=== PATIENT | female | born 1945 | race Caucasian/White ===

== ENCOUNTER 2017-08-26 16:15 | Inpatient (IN) | payer OTHER ==
[~2017-08-26] VITALS: Ht 162.6 cm; Wt 73.2 kg
[2017-08-26 16:18] VITALS: BP 168/70
[2017-08-26 16:36] LABS: BASO % 0.3 % (0.0-1.0); EOS # 0.1 10*3/uL (0.0-0.4); EOS % 0.9 % (1.0-4.0); HEMATOCRIT 42.1 % (37.0-47.0); HEMOGLOBIN 14.1 g/dl (12.0-16.0); LYMPH # 3.6 10*3/uL (1.3-4.4); LYMPH % 34.8 % (27.0-41.0); MEAN CELL VOLUME 93.1 fl (81.0-99.0); MEAN CORPUSCULAR HGB 31.2 pg (27.0-31.0); MEAN CORPUSCULAR HGB CONC 33.5 g/dl (33.0-37.0); MEAN PLATELET VOLUME 10.1 fl (9.6-12.3); MONO # 0.8 10*3/uL (0.1-1.0); MONO % 7.6 % (3.0-9.0); NEUT # 5.9 10*3/uL (2.3-7.9); PLATELET COUNT AUTOMATED 256 10*3/uL (130-400); RED BLOOD COUNT 4.52 10*6/uL (4.10-5.10); RED CELL DISTRI WIDTH 12.6 % (0-14.5); WHITE BLOOD COUNT 10.5 10*3/uL (4.8-10.8)
[2017-08-26 16:45] LABS: ACT PARTIAL THROMBO TIME 23.7 SECONDS (20.8-31.5); INTERNATIONAL NORM RATIO 0.9 (2.0-3.5)
[2017-08-26 16:54] LABS: ALKALINE PHOSPHATASE 86 U/L (45-117); BUN 18 mg/dl (7-24); CHLORIDE 107 mmol/L (98-107); CREATININE 1.18 mg/dL (0.55-1.02); SGOT/AST 12 IU/L (3-35); SGPT/ALT 27 U/L (12-78); SODIUM 139 mmol/L (136-145); TOTAL PROTEIN 7.9 gm/dL (6.4-8.2)
[2017-08-26 16:56] LABS: TROPONIN I < 0.015 ng/ml (<0.045)
--- NOTE | 2017-08-26 18:11 | NUR ---
REPORT CALL TO ELIAS ELLER, PT CYNTHIA ALBARADO, STATES THE GI COCKTAIL WAS EFFECTIVE, ALSO FOR HER RIGHT SIDED NECK PAIN. PT REMAINS NSR.
[2017-08-26 18:13] VITALS: BP 157/65
--- NOTE | 2017-08-26 18:30 | NUR ---
A 72, admitted to , under the services of ADILSON Rojas DO with a diagnosis of CHEST PAIN. Chief complaint is C/O MID STERNAL CHEST PAIN RADATING INTO RIGHT SIDE OF NECK ON AND OFF SINCE MONDAY. STATES THE PAIN HAS INCREASED TODAY. DENIES ANY SOB. SLIGHT NAUSEA. Patient arrived via stretcher from ER. Monitor applied. Initial assessment completed. Vital signs taken and recorded. ADILSON ROJAS DO notified of admission to the unit. Orders received. See assessment for past medical history, medications and allergies. Patient and/or family oriented to unit. [facility] visitation policy reviewed. Clothing/patient valuable form completed. ELIAS HERNANDEZ
[2017-08-26] MEDS ORDERED: PROTONIX40 MG PO (19:17)
[2017-08-26] MEDS ORDERED: LEVSIN0.125 M2 PO (19:18)
--- NOTE | 2017-08-26 19:20 | NUR ---
MEDS VERIFIED WITH BOTTLES. THE PATIENT HAD A BOTTLE OF LEVSIN THAT IS FROM 2014. PATIENT STATES THAT IT IS FOR STOMACH SPASMS. SHE STATES SHE ONLY HAS TO TAKE IT ONCE IN A WHILE WHICH IS WHY SHE STILL HAS SOME LEFT.
--- NOTE | 2017-08-26 19:30 | NUR ---
ASSUMED CARE OF PT AT THIS TIME, RESPS EASY AND NONLABORED WITH NO S/S OF DISTRESS, CALL LIGHT WITH IN REACH
[2017-08-26 20:00] VITALS: BP 151/80
[2017-08-27] VITALS: BP 147/65
[2017-08-27 06:02] LABS: ALBUMIN 3.3 gm/dl (3.1-4.5); ALKALINE PHOSPHATASE 69 U/L (45-117); BUN 13 mg/dl (7-24); CHLORIDE 109 mmol/L (98-107); CHOLESTEROL 199 mg/dL (<200); CREATININE 0.93 mg/dL (0.55-1.02); FREE T4 1.08 ng/dl (0.76-1.46); HDL CHOLESTEROL 41 mg/dl (40-60); LDL CHOLESTEROL 107 mg/dL (9-159); PHOSPHOROUS 2.9 mg/dL (2.5-4.9); POTASSIUM 4.1 mmol/L (3.5-5.1); SGOT/AST 11 IU/L (3-35); SGPT/ALT 20 U/L (12-78); SODIUM 142 mmol/L (136-145); TOTAL PROTEIN 6.3 gm/dL (6.4-8.2); TRIGLYCERIDES 254 mg/dl (<150); VLDL CHOLESTEROL 51 mg/dL (6-40)
[2017-08-27 06:03] LABS: BASO % 0.2 % (0.0-1.0); EOS # 0.1 10*3/uL (0.0-0.4); EOS % 1.1 % (1.0-4.0); HEMATOCRIT 37.6 % (37.0-47.0); HEMOGLOBIN 12.1 g/dl (12.0-16.0); MEAN CELL VOLUME 94.2 fl (81.0-99.0); MEAN CORPUSCULAR HGB 30.3 pg (27.0-31.0); MEAN CORPUSCULAR HGB CONC 32.2 g/dl (33.0-37.0); MEAN PLATELET VOLUME 10.3 fl (9.6-12.3); MONO # 0.7 10*3/uL (0.1-1.0); MONO % 7.9 % (3.0-9.0); NEUT # 4.5 10*3/uL (2.3-7.9); NEUT % 54.4 % (47.0-73.0); PLATELET COUNT AUTOMATED 234 10*3/uL (130-400); RED BLOOD COUNT 3.99 10*6/uL (4.10-5.10); RED CELL DISTRI WIDTH 12.7 % (0-14.5); WHITE BLOOD COUNT 8.4 10*3/uL (4.8-10.8)
[2017-08-27 06:08] LABS: ACT PARTIAL THROMBO TIME 25.7 SECONDS (20.8-31.5)
[2017-08-27 06:47] LABS: VITAMIN D, 25-HYDROXY 25.6 ng/mL (30-100)
--- NOTE | 2017-08-27 07:25 | NUR ---
Shift chart check completed.
[2017-08-27 08:00] VITALS: BP 146/72
--- NOTE | 2017-08-27 08:43 | NUR ---
NOTIFIED DR MEEKS ABOUT PATIENT'S MEDS. VERIFIED WITH BOTTLE THE PROTONIX RECENT FILL AND THE OLD FILL ON THE LEVSIN.
[2017-08-27 12:00] VITALS: BP 139/57
--- NOTE | 2017-08-27 13:25 | NUR ---
WENT OVER D/C INSTRUCTIONS. PATIENT VERBALIZED UNDERSTANDING. REMOVED IV WITH CATHETER INTACT AND BLEEDING CONTROLLED. PATIENT IS WAITING ON A RIDE.
--- NOTE | 2017-08-27 13:45 | NUR ---
PATIENT AMBULATED TO THE EXIT WITHOUT DIFFICULTY. PATIENT IS D/C HOME.
== END 2017-08-27 13:45 | disposition home or self-care (01) | DRG 391 ==
LOC: ED 16:15 → EDHOLD 17:29 → 5E 17:43
PROVIDERS: Emergency Medicine; Internal Medicine; ADMIT Internal Medicine
DX: K21.9 Gastro-esophageal reflux disease without esophagitis (principal); N17.0 Acute kidney failure with tubular necrosis; R07.89 Other chest pain; E78.00 Pure hypercholesterolemia, unspecified; K44.9 Diaphragmatic hernia without obstruction or gangrene; R03.0 Elevated blood-pressure reading, without diagnosis of hypertension; E83.41 Hypermagnesemia; Z88.8 Allergy status to other drugs, medicaments and biological substances; Z91.040 Latex allergy status; Z83.3 Family history of diabetes mellitus; Z98.51 Tubal ligation status; Z80.1 Family history of malignant neoplasm of trachea, bronchus and lung; Z79.899 Other long term (current) drug therapy

== ENCOUNTER → 2017-09-05 | Outpatient (CLI) | payer OTHER ==
[~2017-09-05] MED LIST: LEVSIN0.125 M2 PO; PROTONIX40 MG PO
== END ==
LOC: US 09:58
DX: K76.0 Fatty (change of) liver, not elsewhere classified (principal)

== ENCOUNTER → 2019-09-11 | Day surgery (SDC) | payer OTHER ==
[~2019-09-11] VITALS: Ht 162.5 cm; Wt 72.6 kg
--- NOTE | ~2019-09-11 | O ---
[place], [place] OPERATIVE NOTE [id number] UN[facility] #: [id number] ROOM: DOCTOR: CARIE KAYE MD BIRTHDATE: [birth year] DOS: 09/11/2019 PREOPERATIVE DIAGNOSIS: Cataract, left eye. POSTOPERATIVE DIAGNOSIS: Cataract, left eye. OPERATION: Extracapsular cataract extraction by phacoemulsification with posterior chamber intraocular lens implantation, left eye. INTRAOCULAR LENS: Mk, Model #AU00T0, and 23.5 diopters, left eye. ANESTHESIA: Monitored standby. OPERATIVE FINDINGS AND PROCEDURE: 2% Xylocaine topical anesthetic gel was applied to the eye in the preop area. The patient was taken to the operating room and prepped and draped in the standard fashion for sterile intraocular surgery. A time out procedure was performed verifying correct patient, correct site and corrects lens with Cornelius Kaye M.D. The operating microscope was swung into position and the lid speculum was inserted. Using a Sabrina paracentesis blade, a paracentesis was made through clear cornea. Viscoelastic was used to fill the anterior chamber. Using a metal keratome a 2.4 mm self-sealing clear corneal cataract incision was made temporally at the limbus. Using a pre-bent 25 gauge cystotome needle, a standard continuous curvilinear capsulorrhexis was performed. The anterior capsule was removed with forceps. The lens nucleus was hydrodissected and phacoemulsified in the posterior chamber. Cortical material was removed with the irrigation aspiration hand piece and the posterior capsule was then polished with a curet under irrigation. The posterior chamber and capsular bag were filled with viscoelastic. A posterior chamber intraocular lens manufactured by: Mk, Model #AU00T0, and 23.5 diopters in strength were then inserted into the posterior chamber and within the capsular bag using the lens cartridge and injector system. Viscoelastic was removed using the irrigation aspiration handpiece. The anterior chamber was filled with balanced salt solution through the paracentesis. Both the paracentesis site and cataract incisions were hydrated with BSS and verified to be water-tight and self-sealing. The incision checked to be water-tight using a Weck-Lori sponge. The integrity of the cataract wound and ocular tension were checked. Lid speculum and drapes were removed. The patient was transferred from the operating room to the recovery room in satisfactory condition. [place], [place] OPERATIVE NOTE NAME: RADHA SHAW UNIT #: [id number] ROOM: DOCTOR: CARIE KAYE MD BIRTHDATE: [birth year] CARIE KAYE MD CM:OPRECORD:OPERATIVE NOTE [id number] CARIE KAYE MD 09/11/19 1056 interface
[2019-09-11 09:30] VITALS: BP 143/66
[2019-09-11 10:45] VITALS: BP 120/49
[2019-09-11 11:00] VITALS: BP 113/52
[2019-09-11 11:15] VITALS: BP 120/49
== END | disposition home or self-care (01) ==
LOC: SDC 09-04 11:00
DX: H25.812 Combined forms of age-related cataract, left eye (principal); K21.9 Gastro-esophageal reflux disease without esophagitis; E78.00 Pure hypercholesterolemia, unspecified; Z98.51 Tubal ligation status; Z98.890 Other specified postprocedural states; Z88.8 Allergy status to other drugs, medicaments and biological substances; Z88.2 Allergy status to sulfonamides; Z80.1 Family history of malignant neoplasm of trachea, bronchus and lung

== ENCOUNTER → 2019-10-16 | Day surgery (SDC) | payer OTHER ==
[~2019-10-16] VITALS: Ht 162.5 cm; Wt 72.6 kg
[~2019-10-16] MED LIST changes: +ZETIA10 MG PO
[2019-10-16 07:08] VITALS: BP 145/69
[2019-10-16 08:10] VITALS: BP 136/63
[2019-10-16 08:22] VITALS: BP 130/56
[2019-10-16 08:33] VITALS: BP 132/76
== END | disposition home or self-care (01) ==
LOC: SDC 10-11 10:15
DX: H25.11 Age-related nuclear cataract, right eye (principal); K21.9 Gastro-esophageal reflux disease without esophagitis; E78.5 Hyperlipidemia, unspecified; E78.00 Pure hypercholesterolemia, unspecified; Z88.8 Allergy status to other drugs, medicaments and biological substances; Z88.2 Allergy status to sulfonamides; Z98.890 Other specified postprocedural states; Z83.3 Family history of diabetes mellitus; Z80.1 Family history of malignant neoplasm of trachea, bronchus and lung

== ENCOUNTER → 2020-04-28 | Outpatient (CLI) | payer OTHER | END | disposition home or self-care (01) | LOC: RAD 16:10 | DX: Z01.812 Encounter for preprocedural laboratory examination (principal) ==

== ENCOUNTER 2021-09-24 13:14 | Emergency (ER) | payer OTHER ==
[~2021-09-24] VITALS: Ht 162.5 cm; Wt 72.6 kg
[2021-09-24] MEDS ORDERED: ZETIA10 MG PO (13:51)
[2021-09-24] MEDS ORDERED: NAPROXEN500 MG PO (17:49)
== END 2021-09-24 17:42 | disposition home or self-care (01) ==
LOC: ED 13:14
DX: M25.462 Effusion, left knee (principal)

== ENCOUNTER → 2021-10-13 | Outpatient (CLI) | payer OTHER ==
[~2021-10-13] MED LIST changes: +NAPROXEN500 MG PO
== END ==
LOC: MRI 00:38
PROVIDERS: ATTEND Orthopaedic Surgery
DX: S83.212A Bucket-handle tear of medial meniscus, current injury, left knee, initial encounter (principal); M71.22 Synovial cyst of popliteal space [Baker], left knee; M23.92 Unspecified internal derangement of left knee; M17.12 Unilateral primary osteoarthritis, left knee; M25.462 Effusion, left knee; X58.XXXA Exposure to other specified factors, initial encounter; Y93.89 Activity, other specified; Y92.89 Other specified places as the place of occurrence of the external cause; Y99.8 Other external cause status

== ENCOUNTER → 2021-12-07 | Outpatient (CLI) | payer OTHER | END | disposition home or self-care (01) | LOC: RAD 13:18 | PROVIDERS: ATTEND Nurse Practitioner Family | DX: Z13.820 Encounter for screening for osteoporosis (principal); M85.88 Other specified disorders of bone density and structure, other site; Z87.312 Personal history of (healed) stress fracture ==

== ENCOUNTER 2023-12-15 14:00 | Emergency (ER) | payer OTHER ==
[~2023-12-15] VITALS: Ht 160 cm; Wt 72.1 kg
== END 2023-12-15 15:27 | disposition home or self-care (01) ==
LOC: ED 14:00
DX: S00.83XA Contusion of other part of head, initial encounter (principal); S09.8XXA Other specified injuries of head, initial encounter; R07.81 Pleurodynia; E78.00 Pure hypercholesterolemia, unspecified; K21.9 Gastro-esophageal reflux disease without esophagitis; W01.198A Fall on same level from slipping, tripping and stumbling with subsequent striking against other object, initial encounter; Y93.89 Activity, other specified; Y92.89 Other specified places as the place of occurrence of the external cause; Y99.8 Other external cause status; Z88.8 Allergy status to other drugs, medicaments and biological substances; Z88.2 Allergy status to sulfonamides; Z88.1 Allergy status to other antibiotic agents; Z91.040 Latex allergy status; Z98.890 Other specified postprocedural states; Z98.51 Tubal ligation status